=== PATIENT | male | born 1930 | race Caucasian/White ===

== ENCOUNTER 2016-09-05 19:29 | Inpatient (IN) | payer MEDICARE ==
[~2016-09-05] VITALS: Ht 177.8 cm; Wt 81.6 kg
--- NOTE | 2016-09-05 19:30 | NUR ---
PT IS RESTING IN BED WITH EYES OPEN. ALERT AND ORIENTED X 3. CONFUSED TO SITUATION, BUT REORIENTS EASILY. DENIES ACUTE NEEDS. VSS. ASSISTED TO THE BATHROOM. LARGE FORMED BM NOTED. SR'S ARE UP X 2 IN BED. CALL LIGHT AND BEDSIDE TABLE ARE WITHIN EASY REACH.
[2016-09-05 20:00] VITALS: BP 137/71
--- NOTE | 2016-09-05 21:53 | NUR ---
PT IS RESTING QUIETLY IN BED WITH EYES CLOSED. RESPS ARE EVEN AND UNLABORED. NO ACUTE DISTRESS NOTED.
[2016-09-05 22:42] LABS: APPEARANCE HAZY (CLEAR); BILIRUBIN NEGATIVE (NEGATIVE); COLOR STRAW (YELLOW); GLUCOSE 250 mg/dL (NEGATIVE); KETONE NEGATIVE (NEGATIVE); LEUKOCYTE ESTERASE 2+ (NEGATIVE); NITRITE NEGATIVE (NEGATIVE); PROTEIN TRACE mg/dL (NEGATIVE); SPECIFIC GRAVITY 1.005 (1.005-1.020); UROBILINOGEN NORMAL (NORMAL)
[2016-09-05 22:44] LABS: BACTERIA FEW /hpf (NONE SEEN); EPITHELIAL CELLS 0-5 /hpf (0-5); RED CELLS - URINE 0-5 /hpf (0-5); WHITE CELLS - URINE >50 /hpf (0-5)
--- NOTE | 2016-09-05 23:42 | NUR ---
PT IS RESTING QUIETLY IN BED WITH EYES CLOSED. RESPS ARE EVEN AND UNLABORED. NO ACUTE DISTRESS NOTED.
--- NOTE | 2016-09-06 00:18 | NUR ---
PT. IN BED WITH HOB UP FOR COMFORT WITH EYES CLOSED AND RESP. EVEN. PT. AWAKENS EASILY AND HAS NO VOICED NEEDS OR COMPLAINTS AT THIS TIME. CALL LIGHT WITHIN REACH.
[2016-09-06 00:34] VITALS: BMI 25.8
--- NOTE | 2016-09-06 02:10 | NUR ---
RESTING IN BED WITH EYES CLOSED.
[2016-09-06] MEDS ORDERED: BAYER CHEWABLE81 MG PO (05:13)
[2016-09-06] MEDS ORDERED: HEPARIN SOD5000 U/ML IV (05:13)
[2016-09-06] MEDS ORDERED: TRADJENTA5 MG PO (05:15)
[2016-09-06] MEDS ORDERED: LEVEMIR100 U/M1 SC (05:15)
--- NOTE | 2016-09-06 06:26 | NUR ---
PT IS RESTING IN BED WITH EYES CLOSED. AWOKE EASILY TO VERBAL STIMULI. DENIES NEEDS. I ATTEMPTED TO HAVE PT SIGN ADMIT PAPERS. HE REPLIED NUMEROUS TIMES: "WELL, I GUESS THEY SENT ME OVER HERE FOR ANTIBIOTICS FOR MY URINE INFECTION.", BUT WOULD NOT SIGN THE PAPERS.
[2016-09-06 07:00] VITALS: BP 163/103
[2016-09-06 07:23] LABS: BASOPHILS 0.3 % (0.0-2.0); EOSINOPHILS 2.9 % (0-7); HEMATOCRIT 39.8 % (42.0-54.0); HEMOGLOBIN 12.5 g/dL (13.5-17.5); IMMATURE GRANULOCYTES 0.4 % (0-5); LYMPHOCYTES 22.4 % (15-50); MCHC 31.4 g/dL (31.0-37.0); MCV 92.3 fL (80.0-100.0); MEAN PLATELET VOLUME 10.9 fL (7.4-10.4); MONOCYTES 11.9 % (2-11); NEUTROPHILS 62.1 % (40-80); PLATELET COUNT 226 10x3/uL (130-400); RBC 4.31 10x6/uL (4.20-6.10); RDW 14.2 % (11.5-14.5); WBC 7.2 10x3/uL (4.8-10.8)
--- NOTE | 2016-09-06 08:00 | NUR ---
SHIFT ASSMT COMPLETED.INCONTINENT OF URINE.CLEANED AND DRESSED.UP OOB TO WC;LINENS CHANGED.CL IN REACH.ALARM ON.
[2016-09-06 08:42] LABS: ANION GAP 15.3 mmol/L (8-16); CALCIUM 9.8 mg/dL (8.5-10.1); CARBON DIOXIDE 22.9 mmol/L (21.0-32.0); CREATININE - SERUM 2.9 mg/dL (0.6-1.3); POTASSIUM - SERUM 4.2 mmol/L (3.5-5.1)
--- NOTE | 2016-09-06 12:00 | NUR ---
SITTING UP IN WC EATING LUNCH AT TABLE.CL IN REACH.
[2016-09-06 14:00] VITALS: Ht 177.8 cm; Wt 81.6 kg
--- NOTE | 2016-09-06 19:45 | NUR ---
PT UP TO BATHROOM, WITH MOD ASSIST, NEEDS ASSISTANCE TO MANIPULATE LOWER DRESSING. PT CONVERSIVE, POTENTIALLY SUBTLE ALTERED THOUGHT PROCESSES. PT STATES HE LIVES BY HIMSELF.
[2016-09-06 20:22] VITALS: BP 145/79
--- NOTE | 2016-09-06 21:30 | NUR ---
URINARY FREQUENCY WITH MOD INCONTINENCE, URINE APPEARS CLOUDY. PT URINATING APPROXIMATELY EVERY 30-45 MINUTES.
--- NOTE | 2016-09-07 02:00 | NUR ---
ASSISTED TO BATHROOM, PT REQUIRED MORE ASSISTANCE WITH TRANSFER, PT STATED HE IS GETTING TIRED.
--- NOTE | 2016-09-07 03:03 | NUR ---
PT LOWER EXTREMITIES REDDENED AND SCALY SKIN.
--- NOTE | 2016-09-07 06:53 | NUR ---
PT UP TO BATHROOM, PT STATES HE HAS FREQUENCY AT HOME ALSO, BUT WHEN HE CAN'T SLEEP AT NIGHT HE SLEEPS DURING THE DAY. PT UP TO BATHROOM SEVERAL TIMES DURING THE SHIFT.
[2016-09-07 07:00] VITALS: BP 140/84
--- NOTE | 2016-09-07 08:00 | NUR ---
SITTING UP IN WC.BREAKFAST GIVEN.COVERS PLACED OVER SHOULDERS.CL IN REACH.
--- NOTE | 2016-09-07 12:00 | NUR ---
REMAINS STILL SITTING UP IN WC.CL IN REACH.MEAT CUT-UP DUE TO EDENTILOUS.
--- NOTE | 2016-09-07 16:00 | NUR ---
RESTING QUIETLY IN BED ON SIDE.
[2016-09-07 20:01] VITALS: BP 118/77
--- NOTE | 2016-09-07 20:05 | NUR ---
assisted pt to bathroom min assist with transfer. heart rate ranging from 106 to 116, asymptomatic denies chest palpations, sob, chest discomfort or pain.
--- NOTE | 2016-09-07 22:51 | NUR ---
EMPTIED APPROX 100 CC OF URINE FROM URINAL, LINEN WET, LINEN CHANGED, ASSISTED PT TO BATHROOM.
--- NOTE | 2016-09-08 04:55 | NUR ---
pt resting quietly in bed, eyes closed, respirations regular and unlabored. earlier pt was using urinal with amounts less than one hundred two times, pt linen wet, linens changed. pt also gets up to toilet and is incontinent in brief. brief and scrubs changed. pt needs assistance with upper and lower dressing.
[2016-09-08 06:39] LABS: BASOPHILS 0.2 % (0.0-2.0); EOSINOPHILS 2.6 % (0-7); HEMATOCRIT 38.3 % (42.0-54.0); HEMOGLOBIN 12.2 g/dL (13.5-17.5); IMMATURE GRANULOCYTES 0.3 % (0-5); LYMPHOCYTES 27.6 % (15-50); MCHC 31.9 g/dL (31.0-37.0); MEAN PLATELET VOLUME 10.5 fL (7.4-10.4); MONOCYTES 10.5 % (2-11); NEUTROPHILS 58.8 % (40-80); PLATELET COUNT 221 10x3/uL (130-400); RBC 4.21 10x6/uL (4.20-6.10); RDW 14.2 % (11.5-14.5); WBC 6.6 10x3/uL (4.8-10.8)
[2016-09-08 06:49] LABS: ANION GAP 16.7 mmol/L (8-16); CALCIUM 9.5 mg/dL (8.5-10.1); CARBON DIOXIDE 19.5 mmol/L (21.0-32.0); CREATININE - SERUM 3.2 mg/dL (0.6-1.3); POTASSIUM - SERUM 4.2 mmol/L (3.5-5.1)
[2016-09-08 08:45] VITALS: BP 115/67
--- NOTE | 2016-09-08 09:22 | RHP ---
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 HISTORY OF PRESENT ILLNESS: The patient is an 86-year-old gentleman admitted to the acute inpatient rehab for acute kidney injury status post fall and lying on the floor for greater than 12 hours. He was found on the floor of his apartment by home health. He had fallen out of his electric wheelchair and got stuck underneath his wheelchair. He lives in an apartment alone. He has a history of post-polio syndrome. He uses an electric wheelchair and rolling walker at home. His electric wheelchair have been broken at this time. He will need to return home utilizing his rolling walker. He requires verbal cues for safety and fall risk, upper extremity strengthening to stand erect. He also has difficulty in making turns without loss of balance. He is unsafe to send home at this time alone and requires assistance for ADLs and mobility. COMORBIDITIES: Include post-polio syndrome, diabetes, elevated CK-MB, acute cystitis without hematuria, recent falls, hypoglycemia complicated by hyperglycemia, dehydration, fluid overload, electrolyte imbalance, and acute mental status changes. PAST MEDICAL HISTORY: Significant for post-polio syndrome, diabetes, recent falls, acute mental status changes and electrolyte abnormalities. PAST SURGICAL HISTORY: Includes no relevant surgeries. ALLERGIES: No known drug allergies. CURRENT MEDICATIONS: He is on subQ heparin b.i.d. He is on Levemir 5 units daily. He is on chewable aspirin 81 mg daily and Tradjenta 5 mg daily. HABITS: No alcohol or tobacco use. FAMILY HISTORY: Noncontributory. SOCIAL HISTORY: The patient hopes to return back home and get back to his prior level of functioning. REVIEW OF SYSTEMS: GENERAL: Does complain of weakness and fatigue. HEENT: Denies cold, cough, or congestion. CARDIOVASCULAR: Denies chest pain. PHYSICAL EXAMINATION: VITAL SIGNS: Stable, afebrile. GENERAL: An elderly gentleman in no acute distress, alert upon exam. HISTORY AND PHYSICAL [id number] KEL PAT HEENT: Normocephalic and atraumatic. Mucosa moist. NECK: Supple. No lymphadenopathy. LUNGS: Clear. HEART: ____ rate and rhythm. ABDOMEN: Benign. EXTREMITIES: Consistent with post-polio problems. NEUROLOGIC: Intact. LABORATORY DATA: His white count is 7.2, H&H of 12 and 39, and platelet count is 226. Sodium 149, potassium 4.2, BUN and creatinine of 47 and 2.9, blood sugar is noted to be 134. ASSESSMENT: This is an 86-year-old gentleman admitted to the rehab with a working diagnosis of acute kidney injury complicated by post-polio syndrome. The patient has potential to make improvement. We instituted the following multidisciplinary therapies including to, but not limited to physical, occupation, speech, nutritional services, prosthetics and orthotics. Given his complex condition and risk for more complications, rehabilitation services cannot be provided at a low level of care such as a nursing home facility. PLAN: 1. Admit to [facility] rehab for intensive inpatient therapy to include the following disciplines: A. Physical therapy to improve gait, all transfer skills and bed mobility to a modified independent level. B. Occupational therapy to improve activities of daily living to a modified independent level. C. Case management to assist with discharge planning and placement options. D. Nutrition to assist with nutritional needs. E. Rehabilitation nursing to assist in monitoring the patient's on medical conditions and to assist with any type of bowel or bladder management. 2. The patient's current medication and medical care will be continued. 3. The patient will be placed on standard fall precautions. 4. The patient's estimated length of stay is approximately 7-10 days. 5. Discuss this patient during care team staff meeting this week. TRANSINT:[id number] Voice Confirmation ID: [id number] DOCUMENT ID: [id number] FRANCISCO VAZQUEZ MD at 0922 CC: [id number] DICTATION DATE: 09/06/16 1129 BALANCE SHEET ANALYST: 09/06/16 1701 ADM IN [facility] [address] [place] [address]
--- NOTE | 2016-09-08 20:15 | NUR ---
PT ASSISTED TO BR. PT IS A MOD ASSIST TO WHEELCHAIR. PT BACK IN BED RESTING AND DENIES FURTHUR NEEDS. WCTM. BED LOW. CL IN REACH.
--- NOTE | 2016-09-08 23:46 | NUR ---
PT RESTIGN, EYES CLOSED. BED LOW. CL IN REACH. WCTM.
--- NOTE | 2016-09-09 02:36 | NUR ---
PT RESTIGN, EYES CLOSED. BED LOW. CLIN REACH. WCTM.
--- NOTE | 2016-09-09 07:00 | NUR ---
Pt. was received at the beginning of this shift in bed awake but confused. Oriented to self only. Vital signs stable. No complaints of any discomfort or signs of distress. Will be monitoring him throughout this shift and assisting prn with adl's.
[2016-09-09 08:35] VITALS: BP 120/69
--- NOTE | 2016-09-09 17:02 | NUR ---
Pt. has had an uneventful day. Levamir was held this am due to blood sugar level being 98 at 0600. Pt. continues to be incontinent of urine. Prn alexis care is given for this incontinence. Assist to bathroom is given throughout the day. Observation continues.
--- NOTE | 2016-09-09 19:45 | NUR ---
PT. IN BED LYING ON HIS BACK WITH HOB UP FOR COMFORT AND IS WATCHING TV. ASSESSMENT COMPLETED. PT. DENIES ANY VOICED NEEDS AT THIS TIME AND HE HAS HIS CALL LIGHT WITHIN REACH.
[2016-09-09 21:19] VITALS: BP 149/68
--- NOTE | 2016-09-09 23:44 | NUR ---
PT. IN BED LYING ON HIS RIGHT SIDE WITH EYES CLOSED AND RESP. EVEN. CALL LIGHT WITHIN REACH.
[2016-09-10 05:51] LABS: BASOPHILS 0.2 % (0.0-2.0); EOSINOPHILS 3.7 % (0-7); HEMATOCRIT 38.1 % (42.0-54.0); IMMATURE GRANULOCYTES 0.4 % (0-5); LYMPHOCYTES 26.2 % (15-50); MCH 28.8 pg (26.0-34.0); MCHC 31.5 g/dL (31.0-37.0); MCV 91.4 fL (80.0-100.0); MEAN PLATELET VOLUME 10.4 fL (7.4-10.4); NEUTROPHILS 56.5 % (40-80); PLATELET COUNT 221 10x3/uL (130-400); RBC 4.17 10x6/uL (4.20-6.10); RDW 14.3 % (11.5-14.5); WBC 5.4 10x3/uL (4.8-10.8)
[2016-09-10 06:22] LABS: ANION GAP 17.3 mmol/L (8-16); CALCIUM 8.6 mg/dL (8.5-10.1); CARBON DIOXIDE 20.5 mmol/L (21.0-32.0); CREATININE - SERUM 3.8 mg/dL (0.6-1.3); POTASSIUM - SERUM 4.8 mmol/L (3.5-5.1)
--- NOTE | 2016-09-10 06:28 | NUR ---
PT. AWAKENED EASILY THIS MORNING AND HE WAS FOUND TO BE WET. HE NEVER USED THE CALL BUTTON FOR ASSISTANCE. PRESTON BROWN CLEANED PT UP, CHANGED HIS SCRUBS AND CHANGED HIS ENTIRE BED LINENS. PT. WITH HOB UP FOR COMFORT LISTENING TO THE TV. PT. HAS NO VOICED NEEDS AT THIS TIME AND HIS CALL LIGHT IS WITHIN REACH.
--- NOTE | 2016-09-10 09:58 | NUR ---
SITTING IN WHEELCHAIR IN GYM AND TOOK PILLS WITH EASE. NO PAIN NOTED.
[2016-09-10 10:00] VITALS: BP 150/85
--- NOTE | 2016-09-10 11:18 | NUR ---
ASSISTED BACK TO WHEELCHAIR FROM BR AND VOIDED YELLOW URINE. NO FALLS NOTED. BOX ALARM ON.
--- NOTE | 2016-09-10 13:22 | NUR ---
SITTING IN WHEELCHAIR WITH CALLIGHT IN REACH.
--- NOTE | 2016-09-10 15:37 | NUR ---
RESTING ON RT SIDE IN BED WITH CALLIGHT IN REACH.
--- NOTE | 2016-09-10 17:55 | NUR ---
SITTING ON SIDE OF THE BED EATING DINNER. NO NEEDS VOICED.
--- NOTE | 2016-09-10 19:15 | NUR ---
PT. IN BED WITH HOB UP FOR COMFORT WATCHING TV. ASSESSMENT COMPLETED. INSTRUCTED PT. ON NEW MD ORDERS FROM DR. LAMBERT RE: URINE NEEDED FOR LAB TESTS AND AN I.V. WILL NEED TO BE STARTED TO INITIATE I.V. FLUIDS THAT MD HAS ORDERED. ANSWERED PT. QUESTIONS BEST I COULD AND PT. WILL ASK MD TOMORROW HOW LOW HE HAS TO HAVE THE I.V. PT. DENIES ANY NEEDS AT THIS TIME AND CALL LIGHT WITHIN REACH.
[2016-09-10 19:45] VITALS: BP 128/61
[2016-09-10 22:29] LABS: CREATININE - URINE 26.3 mg/dL (30-125); POTASSIUM - URINE 17.7 MMOL/L (12.0-62.0); PROTEIN - URINE 105.5 mg/dL (0.0-11.9)
[2016-09-10 22:33] LABS: APPEARANCE HAZY (CLEAR); BILIRUBIN NEGATIVE (NEGATIVE); COLOR STRAW (YELLOW); GLUCOSE 100 mg/dL (NEGATIVE); KETONE NEGATIVE (NEGATIVE); LEUKOCYTE ESTERASE 2+ (NEGATIVE); NITRITE NEGATIVE (NEGATIVE); PROTEIN TRACE mg/dL (NEGATIVE); UROBILINOGEN NORMAL (NORMAL)
[2016-09-10 22:34] LABS: BACTERIA MODERATE /hpf (NONE SEEN); RED CELLS - URINE 0-5 /hpf (0-5); WHITE CELLS - URINE >50 /hpf (0-5)
--- NOTE | 2016-09-10 23:50 | NUR ---
PT. IN BED WITH HOB UP FOR COMFORT AND AWAKENS EASILY I ENTER ROOM. AGAIN EXPLAINED TO PT. THE PURPOSE OF THE I.V. FLUIDS AND ANSWERED PT'S QUESTIONS. PER ASEPTIC TECHNIQUE STARTED PERIPHERAL I.V. USING 22GA ANGIOCATH TO PT'S LEFT FOREARM X 1 ATTEMPT WITHOUT ANY PROBLEMS. INITIATED I.V. 0.9%NS AT 100CC/HR VIA PUMP WITHOUT ANY ALARMS. PT. TOLERATED PROCEDURE WITHOUT ANY COMPLAINTS. SECURED I.V./TUBING AND INSTRUCTED PT. TO ALL FOR ASSISTANCE WHEN NEEDING TO GET UP NOW THAT HE HAS AN I.V. CALL LIGHT WITHIN REACH.
--- NOTE | 2016-09-11 01:50 | NUR ---
PT. IN BED WITH HOB UP FOR COMFORT WITH EYES CLOSED AND RESP. EVEN. CALL LIGHT WITHIN REACH. IV INFUSING VIA PUMP AT 100CC/HR TO LEFT FOREARM I.V. WITHOUT ANY ALARMS.
--- NOTE | 2016-09-11 07:30 | NUR ---
SITTING UP AT BEDSIDE IN WHEELCHAIR.DENIES PAIN.IV TO LEFT FOREARM INFILTRATED.NS TURNED OFF AND CANNULA REMOVED,NO SIGNS OF INFECTION.WILL RESITE IV.CL IN EASY REACH.
[2016-09-11 08:00] VITALS: BP 154/99
--- NOTE | 2016-09-11 09:30 | NUR ---
jeong cath 18fr inserted via steril technique without any difficulty.approximately 1300ml light yellow urine immediately returned to closed drainage bag.small amt.bright red drainage observed around penis opening.drainage bag is to gravity.bed alarm attached and working,instructed to call for assist.
--- NOTE | 2016-09-11 09:58 | NUR ---
Nutrition Follow Up: Chart reviewed. Diet: Diabetic PO Intake: 69% (8 meal avg) +BM 09/06/16 - no BM x 5 days No new wt to assess Labs noted - BUN, Cr continue elevated Meds: Levemir Pt with good po intake at this time. Rec continue current diet. RD following.
--- NOTE | 2016-09-11 14:54 | NUR ---
CARE TEAM MEETING WAS HELD, FRIEND ATTENDED THE MEETING. TENATIVE DISCHARGE DATE IS 09/19/16, SPOKE WITH PATIENT SON AND HE WILL BE HERE Thursday09/15/16 TO TOUR ASSITED LIVING FACILITIES. WILL CONTINUE TO FOLLOW WITH PATIENT UNTIL DISCHARGED
--- NOTE | 2016-09-11 19:00 | NUR ---
IN BED, DENIES NEEDS. S/L IV INFUSING PER PUMP VIA LEFT HAND S/L.
[2016-09-11 21:10] VITALS: BP 126/59
--- NOTE | 2016-09-11 21:15 | NUR ---
RESTING IN BED ON RIGHT SIDE. IV NS CONTINUES INFUSING VIA LEFT HAND S/L AT 100ML/HR RATE. EYES CLOSED. APPEARS COOMFORTABLE.
--- NOTE | 2016-09-11 22:50 | NUR ---
AWOKE PATIENT FOR ASSESSMENTS. REPOSITIONED HIM IN BED. NS INFUSION CONTINUES BEFORE NOTED. DENIES NEEDS. DUMONT CATH PATENT TO BSD BAG.
--- NOTE | 2016-09-12 00:20 | NUR ---
CONTINUES IN BED RESTING ON RIGHT SIDE WITH EYES CLOSED.
--- NOTE | 2016-09-12 02:30 | NUR ---
RESTING IN BED, EYES CLOSED. LYING ON BACK. NO DISTRESS NOTED. NS BAG STILL HAD ABOUT 300ML TO CLAIM.
--- NOTE | 2016-09-12 04:35 | NUR ---
REMAINS IN BED, LYING ON RIGHT SIDE. APPEARS COMFORTABLE. CHANGED OUT NS IV BAG. VOLUME INFUSED THIS SHIFT IS 763ML.
--- NOTE | 2016-09-12 05:30 | NUR ---
FSBS 122. GAVE PATIENT HEPARIN 5000 UNITS SC IN LUQ ABDOMEN.
[2016-09-12 07:03] LABS: BASOPHILS 0.6 % (0.0-2.0); EOSINOPHILS 3.4 % (0-7); HEMATOCRIT 35.3 % (42.0-54.0); HEMOGLOBIN 11.2 g/dL (13.5-17.5); IMMATURE GRANULOCYTES 0.2 % (0-5); LYMPHOCYTES 31.8 % (15-50); MCHC 31.7 g/dL (31.0-37.0); MCV 91.5 fL (80.0-100.0); MEAN PLATELET VOLUME 10.8 fL (7.4-10.4); MONOCYTES 8.1 % (2-11); NEUTROPHILS 55.9 % (40-80); PLATELET COUNT 211 10x3/uL (130-400); RBC 3.86 10x6/uL (4.20-6.10); RDW 14.7 % (11.5-14.5); WBC 4.9 10x3/uL (4.8-10.8)
[2016-09-12 07:17] LABS: ANION GAP 18.2 mmol/L (8-16); CALCIUM 8.5 mg/dL (8.5-10.1); CARBON DIOXIDE 18.3 mmol/L (21.0-32.0); CREATININE - SERUM 3.6 mg/dL (0.6-1.3); POTASSIUM - SERUM 4.5 mmol/L (3.5-5.1)
[2016-09-12 09:51] VITALS: BP 128/66
--- NOTE | 2016-09-12 13:32 | NUR ---
Pt. was received in room at 1100am. He was alert and oriented x 2. IV in left wrist patent and NS infusing via pump at 100ml's/hr. without difficulty. No signs of any discomfort or distress. Allen catheter is patent and draining clear yellow urine to gravity. Will be monitoring and assisting prn with adl's.
[2016-09-12 19:27] VITALS: BP 142/76
--- NOTE | 2016-09-13 01:24 | NUR ---
REVIEWED ORDERS - DECREASED NS TO 50 CC/HR.
--- NOTE | 2016-09-13 03:41 | NUR ---
easily awakens during checks, denies any needs.
--- NOTE | 2016-09-13 06:56 | NUR ---
pt resting quietly, no s/s of acute distress. pt denies pain.
--- NOTE | 2016-09-13 08:15 | NUR ---
PT RESTING IN BED WITH EYES OPEN CALL LIGHT IN REACH NO PROBLEMS WILL MONITER PT EATING BREAKFAST
[2016-09-13 08:38] LABS: ANION GAP 13.5 mmol/L (8-16); CALCIUM 8.5 mg/dL (8.5-10.1); CARBON DIOXIDE 20.4 mmol/L (21.0-32.0); CREATININE - SERUM 2.8 mg/dL (0.6-1.3); POTASSIUM - SERUM 3.9 mmol/L (3.5-5.1)
--- NOTE | 2016-09-13 15:20 | NUR ---
PT RESTING IN BED WITH EYES OPEN CALL LIGHT IN REACH NO PROBLEMS WILL MONITER
--- NOTE | 2016-09-13 17:31 | NUR ---
PT RESTING IN BED WITH EYES OPEN CALL LIGHT IN REACH PT EATING SUPPER TOLERATING WELL WILL MONITER
[2016-09-13 19:32] VITALS: BP 131/54
--- NOTE | 2016-09-13 19:36 | NUR ---
PT RESTING QUIETLY, DRAINED 1000 CC'S FROM DUMONT, NS AT 50 CC IN LEFT WRIST.
--- NOTE | 2016-09-13 19:45 | NUR ---
ASSISTED PT TO BATHROOM, PT STATED HE THOUGHT HE HAD A BM, NO BM NOTED IN TOILET. OFFERED PATIENT A BATH, PT HAS BODY ORDER, PT DENIED STATING HE DIDN'T WANT ONE.
--- NOTE | 2016-09-14 01:00 | NUR ---
GETTING OUT OF BED, STATES HE HAS TO GO TO BATHROOM, PT DENIED NEEDING TO HAVE A BM, RATHER WANTED TO VOID, READJUSTED TUBING IN STATLOCK. PT LAID BACK DOWN TO REST.
--- NOTE | 2016-09-14 05:54 | NUR ---
AWAKE WONDERING ABOUT MEALS ON WHEELS IF THEY ARE HERE. REMINDED HIM HE IS IN THE HOSPITAL AND LAUGHED AND SAID OH YES...
[2016-09-14 07:32] LABS: ANION GAP 15.7 mmol/L (8-16); CALCIUM 8.9 mg/dL (8.5-10.1); CARBON DIOXIDE 21.4 mmol/L (21.0-32.0); CREATININE - SERUM 2.2 mg/dL (0.6-1.3); POTASSIUM - SERUM 4.1 mmol/L (3.5-5.1)
--- NOTE | 2016-09-14 08:05 | NUR ---
INTRODUCED SELF TO PT, BREAKFAST SERVED, PT STATES NO NEW NEEDS, WILL CONTINUE TO MONITOR, CALL LIGHT WITHIN REACH.
[2016-09-14 08:17] VITALS: BP 143/72
--- NOTE | 2016-09-14 10:12 | NUR ---
MORNING MEDICATION GIVEN, PT TOLERATED WELL, NO NEW NEEDS NOTED AT THIS TIME, WILL CONTINUE TO MONITOR, CALL LIGHT WITHIN REACH.
--- NOTE | 2016-09-14 10:13 | NUR ---
ASSIST PT WITH BEDPAN PER PT REQUEST, PT TOLERATED WELL, CALL LIGHT WITHIN REACH.
--- NOTE | 2016-09-14 13:35 | NUR ---
PT SITTING AT BEDSIDE EATING LUNCH, PT STATES NO NEEDS NOTED AT THIS TIME, WILL CONTINUE TO MONITOR, CALL LIGHT WITHIN REACH.
--- NOTE | 2016-09-14 15:42 | NUR ---
NEW BAG OF NS HUNG, PT REQUESTED A FRESH GLASS OF ICE WATER, PT SITTING UP IN BED WATCHING TV, PT STATES NO NEW NEEDS AT THIS TIME, WILL CONTINUE TO MONITOR, CALL LIGHT WITHIN REACH.
--- NOTE | 2016-09-14 17:31 | NUR ---
PT SITTING ON SIDE OF BED EATING DINNER, EVENING MEDICATIONS GIVEN, PT TOLERATED WELL, PT STATES NO NEW NEEDS AT THIS TIME, WILL CONTINUE TO MONITOR, CALL LIGHT WITHIN REACH.
--- NOTE | 2016-09-14 17:50 | NUR ---
RESTING QUIETLY IN BED. CALL LIGHT IN REACH
--- NOTE | 2016-09-14 19:32 | NUR ---
PT IS RESTING IN BED WITH EYES CLOSED. AWOKE EASILY TO VERBAL STIMULI. ALERT AND ORIENTED X 3. DENIES ACUTE DISCOMFORT. VSS. IV INFUSING TO RW WITHOUT DIFFICULTY. NO REDNESS OR EDEMA NOTED AT THE INSERTION SITE. DUMONT CATH IS PATENT AND DRAINING TO A GRAVITY BAG. SR'S ARE UP X 3 IN BED. CALL LIGHT AND BEDSIDE TABLE ARE WITHIN EASY REACH.
[2016-09-14 20:00] VITALS: BP 119/66
--- NOTE | 2016-09-14 22:07 | NUR ---
PT. IN BED WITH HOB UP FOR COMFORT. I.V. OF 0.9%NS INFUSING AT 50CC/HR VIA PUMP INTO PT'S RIGHT WRIST I.V. SITE WITHOUT ANY ALARMS. CALL LIGHT WITHIN REACH.
--- NOTE | 2016-09-14 22:12 | NUR ---
PT IS RESTING QUIETLY IN BED WITH EYES CLOSED. RESPS ARE EVEN AND UNLABORED. NO ACUTE DISTRESS NOTED.
--- NOTE | 2016-09-15 00:30 | NUR ---
PT RESTING IN BED WITH EYES CLOSED. NO DISTRESS NOTED.
--- NOTE | 2016-09-15 03:16 | NUR ---
PT RESTING IN BED WITH EYES CLOSED.
--- NOTE | 2016-09-15 05:58 | NUR ---
PT RESTING IN BED WITH EYES OPEN. NO NEEDS VOICED. TOLERATED AM HEPARIN WITHOUT DIFFICULTY. NO NEEDS VOICED.
[2016-09-15 06:36] LABS: BASOPHILS 0.1 % (0.0-2.0); EOSINOPHILS 3.7 % (0-7); HEMATOCRIT 35.9 % (42.0-54.0); HEMOGLOBIN 11.4 g/dL (13.5-17.5); IMMATURE GRANULOCYTES 0.4 % (0-5); LYMPHOCYTES 24.4 % (15-50); MCH 29.1 pg (26.0-34.0); MCHC 31.8 g/dL (31.0-37.0); MCV 91.6 fL (80.0-100.0); MEAN PLATELET VOLUME 11.1 fL (7.4-10.4); MONOCYTES 10.7 % (2-11); NEUTROPHILS 60.7 % (40-80); PLATELET COUNT 200 10x3/uL (130-400); RBC 3.92 10x6/uL (4.20-6.10); RDW 14.8 % (11.5-14.5); WBC 7.5 10x3/uL (4.8-10.8)
--- NOTE | 2016-09-15 07:00 | NUR ---
Pt. was received at the beginning of this shift in bed. Awake and oriented x 2. IV in left wrist with 0.9%NS running via pump at 50cc/hr. He denies any pain or discomfort. Vital signs: Temp. 97.6, pulse 80, resp. 16, b/p 119/60, 02Sat. 96%. Will be monitoring him and assisting prn with adl's.
[2016-09-15 07:03] LABS: CALCIUM 8.7 mg/dL (8.5-10.1); CARBON DIOXIDE 22.4 mmol/L (21.0-32.0); CREATININE - SERUM 2.2 mg/dL (0.6-1.3); POTASSIUM - SERUM 4.4 mmol/L (3.5-5.1)
[2016-09-15 09:41] VITALS: BP 119/60
--- NOTE | 2016-09-15 13:01 | NUR ---
Dr. Nicholson rounded this am. Pt. went to therapy and participated well. His son and [id number] are here visiting at this time. Pt. is back in his room eatting his lunch. Stable condition observed. Call light is in reach.
--- NOTE | 2016-09-15 19:53 | NUR ---
PT IS RESTING IN HIS WC IN HIS ROOM. ALERT AND ORIENTED X 3. DENIES DISCOMFORT AT THIS TIME. DUMONT CATH IS PATENT AND DRAINING TO A GRAVITY BAG. IV INFUSING TO LEFT WRIST WITHOUT DIFFICULTY. NO REDNESS OR EDEMA NOTED AT THE INSERTION SITE. CALL LIGHT AND BEDSIDE TABLE ARE WITHIN EASY REACH.
[2016-09-15 20:00] VITALS: BP 112/62
--- NOTE | 2016-09-15 22:58 | NUR ---
PT IS RESTING QUIETLY IN BED WITH EYES CLOSED. NO DISTRESS NOTED.
--- NOTE | 2016-09-16 01:32 | NUR ---
PT IS RESTING QUIETLY IN BED WITH EYES CLOSED. NO DISTRESS NOTED.
--- NOTE | 2016-09-16 03:12 | NUR ---
PT ASSISTED UP TO BATHROOM WITH SBA. NO BM NOTED.
--- NOTE | 2016-09-16 03:50 | NUR ---
RESTING IN BED, EYES CLOSED. DUMONT CATH REMAINS PATENT TO BSD BAG.
--- NOTE | 2016-09-16 07:30 | NUR ---
AWAKE.ORIENTED X 3.DENIES NEEDS.IV OF NS AT 50ML/HR INFUSING WELL TO LEFT HAND.ASSESSMENT COMPLETED.WILL CONTINUE WITH PLAN OF CARE.CL IN EASY REACH,BED IN LOW POSITION.
[2016-09-16 09:21] VITALS: BP 94/53
--- NOTE | 2016-09-16 09:32 | NUR ---
referral faxed to [facility] for possible admission there on 09/19/16.
--- NOTE | 2016-09-16 14:58 | NUR ---
Pt. is stable this day. He went to therapy and participated well. Will be monitoring him throughout this shift and assisting prn with adl's. No distress found. Call light in reach.
--- NOTE | 2016-09-16 20:57 | NUR ---
RESTING IN BED WITH EYES CLOSED. AROUSES TO VOICE AND LIGHT PHYSICAL STIMULI. ORIENTED CONVERSANT. DENIES NEEDS. NO ACUTE DISTRESS NOTED
[2016-09-16 21:53] VITALS: BP 128/64
--- NOTE | 2016-09-17 01:10 | NUR ---
AWAKE, ALERT. SITTING UP N W/C AT BEDSIDE. DENIES NEEDS.
--- NOTE | 2016-09-17 05:31 | NUR ---
RESTING IN BED WATCHING TV. ALERT ORIENTED CONVERSANT. DENIES NEEDS. NO ACUTE DISTRESS NOTED
--- NOTE | 2016-09-17 07:44 | NUR ---
RESTING ON RT SIDE IN BED.
[2016-09-17 07:52] VITALS: BP 99/56
--- NOTE | 2016-09-17 08:15 | NUR ---
INTRODUCED SELF TO PT AND SITTER, BREAKFAST SERVED, PT SITTING AT BEDSIDE IN WHEELCHAIR, PT TRANSFER TO CHAIR WITH MINAMAL ASSISTANCE, PT STATES NO NEW NEEDS AT THIS TIME, WILL CONTINUE TO MONITOR, CALLL LIGHT WITHIN REACH.
--- NOTE | 2016-09-17 09:54 | NUR ---
ASSISTED PT TO RESTROOM WITH MINIMAL ASSIST. WILL CONTINUE TO MONITOR, CALL LIGHT WITHIN REACH.
--- NOTE | 2016-09-17 09:57 | NUR ---
MORNING MEDICATION GIVEN, PT TOLERATED WELL, WILL CONTINUE TO MONITOR, CALL LIGHT WITHIN REACH.
--- NOTE | 2016-09-17 12:14 | NUR ---
PT SITTING IN WHEELCHAIR EAT LUNCH, PT STATES NO NEW NEEDS AT THIS TIME WILL CONTINUE TO MONITOR, CALL LIGHT WITHIN REACH.
--- NOTE | 2016-09-17 13:15 | NUR ---
IN TREATMENT ROOM.NO SIGNS OF ACUTE DISTRESS.
--- NOTE | 2016-09-17 14:03 | NUR ---
Nutrition Follow Up: Chart reviewed and pt discussed in Rehab staffing. Diet: Diabetic PO intake: 82% (9 meal avg) I<O No new wt to assess +BM 09/17/16 Labs noted - BUN, Cr, Glucose elevated Meds: Levemir Pt with good po intake at this time. Rec continue current diet. RD following.
--- NOTE | 2016-09-17 16:01 | NUR ---
EDGAR TEAM MEETING: PATIENT HAS BEEN ACCEPTED TO [facility] AND WILL TRANSPORT THERE AT 3:30. FAMILY NOTIFIED .
--- NOTE | 2016-09-17 16:52 | NUR ---
ASSISTED BACK TO BED ,SOFT FORMED STOOL OBSERVED.CL PLACED IN EASY REACH.
[2016-09-17 20:14] VITALS: BP 112/58
--- NOTE | 2016-09-17 21:29 | NUR ---
SITTING UP IN BED AWAKE AT THIS TIME. DENIES ANY NEEDS. NO ACUTE DISTRESS NOTED. WILL CONTINUE PLAN OF CARE.
--- NOTE | 2016-09-18 05:06 | NUR ---
RESTING IN BED WITH EYES CLOSED. AROUSES TO VOICE. ALERT ORIENTED CONVERSANT. ADMINISTERED MEDICATIONS. NO ACUTE DISTRESS NOTED. DENIES NEEDS.
[2016-09-18 06:42] LABS: ANION GAP 14.5 mmol/L (8-16); CALCIUM 8.7 mg/dL (8.5-10.1); CREATININE - SERUM 1.9 mg/dL (0.6-1.3); POTASSIUM - SERUM 4.5 mmol/L (3.5-5.1)
--- NOTE | 2016-09-18 07:08 | NUR ---
RESTING QUIETLY IN BED. CALL LIGHT IN REACH
[2016-09-18 08:18] VITALS: BP 118/59
[2016-09-18] MEDS ORDERED: FLOMAX0.4 MG PO (08:36)
--- NOTE | 2016-09-18 19:40 | NUR ---
PT. IN BED WITH HOB UP FOR COMFORT LYING ON HIS RIGHT SIDE WATCHING TV. ASSESSMENT COMPLETED. TIM TO Kamila WITHOUT ANY PROBLEMS. PT. DENIES ANY NEEDS AT THIS TIME AND HAS HIS CALL LIGHT WITHIN REACH.
[2016-09-18 22:54] VITALS: BP 115/47
--- NOTE | 2016-09-19 01:04 | NUR ---
ASSISTED PT. UP TO BR FOR BM VIA W/C. NO VISIBLY REDDNESS TO BUTTOCK/COCCYX AREAS. PT. TO CALL FOR ASSISTANCE WHEN HE HAS COMPLETED USING BATHROOM. PT. KNOWS HOW TO USE EMERGENCY CALL BUTTON FOR ASSISTANCE.
--- NOTE | 2016-09-19 06:20 | NUR ---
PT. HAD AN UNEVENTUAL NIGHT AND SLEPT FOR THE MAJORITY OF IT. PT. GOT UP A COUPLE OF TIMES TO HAVE BM'S AND THEN IS UP AND READY FOR BREAKFAST AND THERAPY ALREADY. CALL LIGHT REMAINS WITHIN REACH.
--- NOTE | 2016-09-19 07:35 | NUR ---
AWAKE,SITTING UP IN WC.DENIES NEEDS.ASSESSMENT COMPLETED.TO BE DISCHARGED TODAY.CL IN EASY REACH,BED IN LOW POSITION.WILL CONTINUE WITH PLAN OF CARE.
[2016-09-19 08:17] LABS: BASOPHILS 0.3 % (0.0-2.0); EOSINOPHILS 3.4 % (0-7); IMMATURE GRANULOCYTES 0.7 % (0-5); LYMPHOCYTES 22.5 % (15-50); MCH 29.1 pg (26.0-34.0); MCHC 31.6 g/dL (31.0-37.0); MEAN PLATELET VOLUME 11.4 fL (7.4-10.4); MONOCYTES 9.8 % (2-11); NEUTROPHILS 63.3 % (40-80); RBC 4.13 10x6/uL (4.20-6.10); RDW 14.5 % (11.5-14.5); WBC 7.4 10x3/uL (4.8-10.8)
[2016-09-19 08:23] LABS: PLATELET COUNT 252 10x3/uL (130-400)
[2016-09-19 08:35] LABS: ANION GAP 14.3 mmol/L (8-16); CALCIUM 9.1 mg/dL (8.5-10.1); CARBON DIOXIDE 25.9 mmol/L (21.0-32.0); CREATININE - SERUM 1.7 mg/dL (0.6-1.3)
[2016-09-19 08:38] LABS: POTASSIUM - SERUM 5.2 mmol/L (3.5-5.1)
--- NOTE | 2016-09-19 10:03 | NUR ---
PATIENT WILL DISCHARGE TO [facility] TODAY VIA FACILITY [facility]. NO DME OR HOME HEALTH NEEDED AT THIS TIME. PATIENT HAS NO PCP SO HE WILL BE FOLLOWED WITH FACILTY PHYSICIAN. DR. LAMBERT/ S[facility]ANEGAS APN 10/01/16 @ 3:40. PATIENT CHOICE FORM SNF AND [facility] FORM EXPLAINED, SIGNED AND FILED IN CHART.
[2016-09-19 10:35] VITALS: BP 119/61
--- NOTE | 2016-09-19 11:45 | NUR ---
DISCHARGE TEACHING DONE,ALL QUESTIONS ANSWERED.IS OK WITH GOING TO [facility] .
--- NOTE | 2016-09-19 13:30 | NUR ---
[facility] HERE TO TRANSPORT.ASSISTED TO AND BR.INCONT.OF SMALL AMT.LOOSE STOOL,CLEAN DEPENDS PUT ON.DISCHARGED PER TO [facility].HAS ALL PERSONAL ITEMS INCLUDING MEDS BROUGHT FROM HOME.HAS ALL INSTRUCTIONS.
== END 2016-09-19 13:30 | DRG 683 ==
LOC: D.REHAB 19:29
PROVIDERS: Internal Medicine; Internal Medicine Nephrology; ADMIT Emergency Medicine
DX: N17.9 Acute kidney failure, unspecified (principal); N30.01 Acute cystitis with hematuria; G14 Postpolio syndrome; Z91.81 History of falling; E86.0 Dehydration; E87.8 Other disorders of electrolyte and fluid balance, not elsewhere classified; R41.82 Altered mental status, unspecified; E11.65 Type 2 diabetes mellitus with hyperglycemia; I10 Essential (primary) hypertension; E87.70 Fluid overload, unspecified

== ENCOUNTER → 2020-03-19 18:45 | Outpatient (CLI) | payer MEDICARE ==
[2016-09-06 14:00] VITALS: BMI 25.8
[~2020-03-19 18:45] MED LIST: BAYER CHEWABLE81 MG PO; FLOMAX0.4 MG PO; HEPARIN SOD5000 U/ML IV; LEVEMIR100 U/M1 SC; TRADJENTA5 MG PO
[2020-03-19 20:02] LABS: HEMATOCRIT 43.6 % (42.0-54.0); HEMOGLOBIN 13.8 g/dL (13.5-17.5); LYMPHOCYTES 38.1 % (15-50); MCH 29.3 pg (26.0-34.0); MCHC 31.7 g/dL (31.0-37.0); MCV 92.6 fL (80.0-100.0); MEAN PLATELET VOLUME 11.2 fL (7.4-10.4); PLATELET COUNT 210 10x3/uL (130-400); RBC 4.71 10x6/uL (4.20-6.10); RDW 14.8 % (11.5-14.5); WBC 4.8 10x3/uL (4.8-10.8)
[2020-03-19 20:17] LABS: ALBUMIN 3.7 g/dL (3.4-5.0); ANION GAP 13.1 mmol/L (8-16); BILIRUBIN - TOTAL 0.36 mg/dL (0.2-1.3); CALCIUM 9.3 mg/dL (8.5-10.1); CREATININE - SERUM 1.2 mg/dL (0.6-1.3); POTASSIUM - SERUM 4.1 mmol/L (3.5-5.1); PROTEIN - SERUM 6.7 g/dL (6.4-8.2)
== END | disposition home or self-care (01) ==
LOC: D.LABREF 18:45
PROVIDERS: ATTEND Internal Medicine
DX: E11.9 Type 2 diabetes mellitus without complications (principal)